=== PATIENT | male | born 1955 | race Caucasian/White ===

== ENCOUNTER 2018-05-20 12:59 | Emergency (ER) | payer MEDICAID ==
[~2018-05-20] VITALS: Ht 162.6 cm; Wt 72.7 kg
[2018-05-20] MEDS ORDERED: LIDOCAINE 5% TRANSDERMAL PATCH TD ONE (15:00)
[2018-05-20 17:42] VITALS: BP 115/78
== END 2018-05-20 17:46 | disposition home or self-care (01) ==
LOC: EMS 12:59 → EDBD 12:59 → EMS 17:46
DX: M54.5 Low back pain (principal); M75.31 Calcific tendinitis of right shoulder; R03.0 Elevated blood-pressure reading, without diagnosis of hypertension
CPT/HCPCS: 72100